=== PATIENT | female | born 1995 ===

== ENCOUNTER 2017-03-20 15:51 | Emergency (ER) | payer SELFPAY ==
[2017-03-20 16:24] VITALS: TEMP 97.5; BMI 26.6
--- NOTE | 2017-03-20 16:34 | PDOC ---
Attending Attestation - Resident Resident Name: Lucas Singh - ED Attending Attestation I have performed the following: I have examined & evaluated the patient, The case was reviewed & discussed with the resident, I agree w/resident's findings & plan, Exceptions are as noted - HPI HPI: 03/20/17 16:33 22y F hx of tumor on her lower extremity s/p excision w/ plating in october, presents s/p fall, presents withd iffuse pain to the LLE. on exam the pt appears uncomfortable and has swelling to the knee with diffuse tenderness no other localzing bony tenderness will give pain meds, xrays will reasesss 03/20/17 20:12 pt signed out to dr. perera and dr. saldana for reevaluation and xrays - Physicial Exam PE: 03/20/17 20:12 see above - Medical Decision Making 03/20/17 20:12 see above 03/20/17 20:12
[2017-03-20] MEDS ORDERED: OXYCODONE/APAP 5/325MG COMBO TABLET PO ONE ×3 (16:46→20:01)
[2017-03-20] MEDS ORDERED: KETOROLAC TROMETHAMINE 30 MG/1 ML VIAL IM ONE (16:46)
--- NOTE | 2017-03-20 16:51 | PDOC ---
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 The patient reports that she was chasing after her cat and slipped on some water falling backwards with her left leg caught behind her. She states that her left leg twisted during the fall and she fell on her left buttocks and left hip. She denies any loss of consciousness, numbness, tingling , SOB, chest pain, or abdominal pain. Past History - Past Medical History Allergies/Adverse Reactions: Allergies Allergy/AdvReac Type Severity Reaction Status Date / Time No Known Allergies Allergy Verified 03/20/17 16:22 Home Medications: Ambulatory Orders Oxycodone HCl/Acetaminophen [Percocet 5-325 mg Tablet] 1 - 2 tab PO Q6H #20 tablet MDD 4 03/20/17 - Psycho/Social/Smoking Cessation Hx Suicidal Ideation: No Smoking History: Current every day smoker Number of Cigarettes Smoked Daily: 20 Information on smoking cessation initiated: No Review of Systems - Review of Systems Constitutional: No: Chills, Fever HEENTM: No: Recent change in vision Respiratory: No: Cough, Shortness of Breath Cardiac (ROS): No: Chest Pain, Palpitations, Chest Tightness ABD/GI: No: Constipated, Diarrhea, Nausea, Vomiting : No: Burning, Dysuria Integumentary: No: Rash Neurological: No: Headache, Numbness, Tingling, Weakness *Physical Exam - Vital Signs Last Vital Signs Temp Pulse Resp BP Pulse Ox 97.5 F L 85 20 118/57 100 03/20/17 16:22 03/20/17 16:22 03/20/17 16:22 03/20/17 16:22 03/20/17 16:22 - Physical Exam Comments: 03/20/17 17:01 General Appearance: Nourished, in Mild Distress HEENT: No Pharyngeal Erythema, Tonsillar Exudate, Tonsillar Erythema Respiratory/Chest: Lungs Clear, Normal Breath Sounds. No Crackles, Rales, Rhonchi, Wheezing Cardiovascular: Regular Rhythm, Regular Rate. No Murmur, Gallop/S3, Gallop/S4 Gastrointestinal/Abdominal: Normal Bowel Sounds, Soft. No Guarding, Rebound, Tenderness Extremity: Normal Capillary Refill, Sensation to light touch and temperature intact in distal extremities bilaterally. Notable edema noted around the left knee. Tenderness to palpation throughout the left leg from the left calf to the left lower thigh. Decreased range of motion secondary to pain of the left knee. Integumentary: Normal Color, Dry, Warm Neurologic: Fully Oriented, Alert, Normal Mood/Affect, Normal Response Medical Decision Making - Medical Decision Making 03/20/17 17:02 Patient is a 22 year old female who presents with left leg pain following a mechanical fall. Given her physical exam and history of surgery on her left knee with a giant cell tumor removal from the distal femur, we believe that it is reasonable to image her knee. Her exam is somewhat limited due to her pain. We will treat her pain with percocet and toradol and reassess her leg to see if further imaging in needed. 03/20/17 19:08 Patient signed out to Dr. Mendoza. Pending knee radiographs. *DC/Admit/Observation/Transfer Diagnosis at time of Disposition: Leg pain Qualifiers: Laterality: left Qualified Code(s): M79.605 - Pain in left leg - Prescriptions Prescriptions: Oxycodone HCl/Acetaminophen [Percocet 5-325 mg Tablet] 1 - 2 tab PO Q6H #20 tablet MDD 4 - Referrals Referrals: Kianna Bolton [Primary Care Provider] - - Patient Instructions Printed Discharge Instructions: DI for Leg Pain - Post Discharge Activity Work/School Note: Back to Work - Attestations Physician Attestion: 03/21/17 08:06 I, Dr. Lucas Singh, attest that this document has been prepared under my direction and personally reviewed by me in its entirety. I further attest, that it accurately reflects all work, treatment, procedures and medical decision -making performed by me.
[2017-03-20] MEDS ORDERED: OXYCODONE/APAP 5/325MG COMBO TABLET ONE ×2 (17:04→20:15)
[2017-03-20] MEDS ORDERED: KETOROLAC TROMETHAMINE 60 MG/2 ML VIAL ONE (17:04)
--- NOTE | 2017-03-20 19:24 | PDOC ---
*Physical Exam - Vital Signs Last Vital Signs Temp Pulse Resp BP Pulse Ox 97.5 F L 85 20 118/57 100 03/20/17 16:22 03/20/17 16:22 03/20/17 16:22 03/20/17 16:22 03/20/17 16:22 ED Treatment Course - Medications Given in the ED: ED Medications Discontinued Medications Generic Name Dose Route Start Last Admin Trade Name Freq PRN Reason Stop Dose Admin Ketorolac Tromethamine 30 mg 03/20/17 16:46 03/20/17 17:12 Toradol Injection - IM 03/20/17 16:47 30 mg ONCE ONE Administration Oxycodone/Acetaminophen 1 combo 03/20/17 16:46 03/20/17 17:12 Percocet 5/325 - PO 03/20/17 16:47 1 combo ONCE ONE Administration
[2017-03-20 20:13] VITALS: BP 121/78; PULSE 87
--- NOTE | 2017-03-20 20:32 | PDOC ---
*Physical Exam - Vital Signs Last Vital Signs Temp Pulse Resp BP Pulse Ox 97.5 F L 87 17 121/78 98 03/20/17 16:22 03/20/17 20:12 03/20/17 20:12 03/20/17 20:12 03/20/17 20:12 ED Treatment Course - Medications Given in the ED: ED Medications Discontinued Medications Generic Name Dose Route Start Last Admin Trade Name Bere PRN Reason Stop Dose Admin Ketorolac Tromethamine 30 mg 03/20/17 16:46 03/20/17 17:12 Toradol Injection - IM 03/20/17 16:47 30 mg ONCE ONE Administration Oxycodone/Acetaminophen 1 combo 03/20/17 16:46 03/20/17 17:12 Percocet 5/325 - PO 03/20/17 16:47 1 combo ONCE ONE Administration Oxycodone/Acetaminophen 1 combo 03/20/17 18:44 03/20/17 20:17 Percocet 5/325 - PO 03/20/17 18:45 Not Given ONCE ONE Oxycodone/Acetaminophen 1 combo 03/20/17 20:01 03/20/17 20:17 Percocet 5/325 - PO 03/20/17 20:02 1 combo ONCE ONE Administration *DC/Admit/Observation/Transfer Diagnosis at time of Disposition: Leg pain Qualifiers: Laterality: left Qualified Code(s): M79.605 - Pain in left leg - Discharge Dispostion Admit: No - Prescriptions Prescriptions: Oxycodone HCl/Acetaminophen [Percocet 5-325 mg Tablet] 1 - 2 tab PO Q6H #20 tablet MDD 4 - Referrals Referrals: Kianna Bolton [Primary Care Provider] - - Patient Instructions Printed Discharge Instructions: DI for Leg Pain - Post Discharge Activity Work/School Note: Back to Work
== END 2017-03-20 20:38 | disposition home or self-care (01) ==
LOC: JER 15:51
PROC: 3E0233Z Introduction of Anti-inflammatory into Muscle, Percutaneous Approach (ICD-10-PCS; principal; 2017-03-20)
DX: M79.605 Pain in left leg (principal); W01.0XXA Fall on same level from slipping, tripping and stumbling without subsequent striking against object, initial encounter; Y93.02 Activity, running; Y92.038 Other place in apartment as the place of occurrence of the external cause; Y99.8 Other external cause status
CPT/HCPCS: 73552-TC-LT; 73562-TC-LT; 73590-TC-LT; 99282-25